=== PATIENT | female | born 1945 | race Caucasian/White ===

== ENCOUNTER 2023-12-02 10:07 | Emergency (ER) | payer OTHER ==
--- NOTE | 2023-12-02 10:39 | ER ---
Nurse's Notes [facility] Name: Sailaja Downey Age: 78 yrs Sex: Female : 1945 Arrival Date: 12/02/2023 Time: 10:07 Bed 5 Private MD: Diagnosis: Encounter for staple removal Presentation: 12/01 10:25 Chief complaint: Patient states: SEEN FOR FALL ON 11/14, 1/2 LYLA REMOVED 1 WK AGO bp AND DIRECTED TO RETURN TODAY FOR REMAINDER. Coronavirus screen: At this time, the client does not indicate any symptoms associated with coronavirus-19. Ebola Screen: No symptoms or risks identified at this time. Initial Sepsis Screen: Does the patient meet any 2 criteria? No. Patient's initial sepsis screen is negative. Does the patient have a suspected source of infection? No. Patient's initial sepsis screen is negative. Risk Assessment: Do you want to hurt yourself or someone else? Patient reports no desire to harm self or others. Onset of symptoms is unknown. 10:25 Method Of Arrival: Wheelchair bp 10:25 Acuity: DANNIELLE 4 bp Historical: - PMHx: 10:30 Anxiety; COPD; Hypertensive disorder; aa5 - Family history:: not pertinent. - Hospitalizations: : No recent hospitalization is reported. Screenin:30 [facility] ED Fall Risk Assessment (Adult) History of falling in the last 3 months, aa5 including since admission Yes- single mechanical fall (1 pt) Confusion or Disorientation No (0 pts) Intoxicated or Sedated No (0 pts) Impaired Gait Yes (1 pt) Mobility Assist Device Used Yes (1 pt) Altered Elimination No (0 pt) Score/Fall Risk Level 3 or more points = High Risk Oriented to surroundings, Maintained a safe environment, Educated pt \T\ family on fall prevention, incl call for assistance when getting out of bed. Abuse screen: Denies threats or abuse. Nutritional screening: No deficits noted. Tuberculosis screening: No symptoms or risk factors identified. Assessment: 10:30 General: Appears comfortable, Behavior is calm, cooperative. Pain: Complains of pain in aa5 left knee. Neuro: Level of Consciousness is awake, alert, obeys commands, Oriented to person, place, time, situation. Cardiovascular: Patient's skin is warm and dry. Respiratory: Airway is patent Respiratory effort is even, unlabored, Respiratory pattern is regular, symmetrical. GI: No signs and/or symptoms were reported involving the gastrointestinal system. : No signs and/or symptoms were reported regarding the genitourinary system. EENT: No signs and/or symptoms were reported regarding the EENT system. Derm: Skin is pink, warm \T\ dry. Healing laceration noted to left knee with scab noted, mild redness noted to surrounding skin, no drainage noted. Musculoskeletal: Reports pain in left knee. 10:35 Reassessment: Lyla removed by MD, placed Steri strips to left knee per MD VO.. aa5 10:53 Reassessment: Patient is alert, oriented x 3, equal unlabored respirations, skin aa5 warm/dry/pink. Vital Signs: 10:25 BP 109 / 61; Pulse 95; Resp 20; Temp 98.1; Pulse Ox 97% ; bp ED Course: 10:12 Patient arrived in ED. mg5 10:22 Link Henriquez MD is Attending Physician. rn 10:26 Triage completed. bp 10:30 Patient has correct armband on for positive identification. Adult w/ patient. aa5 10:35 Lindsey Velez, RN is Primary Nurse. aa5 10:53 No provider procedures requiring assistance completed. Patient did not have IV access aa5 during this emergency room visit. Administered Medications: No medications were administered Medication: 10:35 VIS not applicable for this client. aa5 Outcome: 10:39 Discharge ordered by MD. rn 10:53 Discharged to home via wheelchair, with family, aa5 10:53 Condition: stable 10:53 Discharge instructions given to patient, Instructed on discharge instructions, follow up and referral plans. Demonstrated understanding of instructions, follow-up care, 10:54 Patient left the ED. bp Signatures: Link Henriquez MD MD rn Calderon, Audri RN RN aa5 Oscar Lagunas RN RN bp Sandra Pike mg5 Corrections: (The following items were deleted from the chart) 11:20 11:19 Abuse screen: Denies threats or abuse. aa5 aa5 11:20 11:19 Nutritional screening: No deficits noted. aa5 aa5 11:20 11:19 Tuberculosis screening: No symptoms or risk factors identified. aa5 aa5 11:20 11:19 [facility] ED Fall Risk Assessment (Adult) History of falling in the last 3 months, aa5 including since admission aa5 11:22 10:30 [facility] ED Fall Risk Assessment (Adult) History of falling in the last 3 months, aa5 including since admission aa5
--- NOTE | 2023-12-02 10:39 | EDPHYS ---
Physician Documentation [facility] Name: Sailaja Downey Age: 78 yrs Sex: Female : 1945 Arrival Date: 12/02/2023 Time: 10:07 Bed 5 Private MD: ED Physician Link Henriquez HPI: 12/01 10:36 This 78 yrs old Female presents to ER via Wheelchair with complaints of Staple Removal. rn 10:36 The patient has lyla on the left leg. Previous treatment: The patient was initially rn treated 17 day(s) ago. Sutures/lyla progress: The patient has no c/o's. The wound is well-healing with no redness, swelling, discharge, or dehiscence reported. The patient has not experienced similar symptoms in the past. Patient returns 17 days after laceration repair for staple removal. Reports at the time was given 12 lyla, has already had 6 removed but told to wait for the other 6 as it was not completely healed. No other complaints. Wound healing well, no signs of redness or infection. Was placed on antibiotics previously.. Historical: - PMHx: 10:30 Anxiety; COPD; Hypertensive disorder; aa5 - Family history:: not pertinent. - Hospitalizations: : No recent hospitalization is reported. ROS: 10:36 Constitutional: Negative for fever, chills, and weight loss, Skin: Well-healing wound rn to the left knee Exam: 10:36 Constitutional: This is a well developed, well nourished patient who is awake, alert, rn and in no acute distress. MS/ Extremity: Well-healed wound left knee, mild surrounding erythema but no warmth or drainage. [address] Vital Signs: 10:25 BP 109 / 61; Pulse 95; Resp 20; Temp 98.1; Pulse Ox 97% ; bp Procedures: 10:36 Suture/Staple removal: Removed 6 lyla, from Left knee, site appears well healed, rn dressed with Steri-Strips and Darwin wrap. Patient tolerated well. MDM: 10:22 Patient medically screened. rn 10:36 Data reviewed: vital signs, nurses notes, and as a result, I will discharge patient. rn Counseling: I had a detailed discussion with the patient and/or guardian regarding the historical points, exam findings, and any diagnostic results supporting the discharge/admit diagnosis, the need for outpatient follow up, to return to the emergency department if symptoms worsen or persist or if there are any questions or concerns that arise at home. Special discussion: I discussed with the patient/guardian in detail that at this point there is no indication for admission to the hospital. It is understood, however, that if the symptoms persist or worsen the patient needs to return immediately for re-evaluation. Administered Medications: No medications were administered Disposition Summary: 12/02/23 10:39 Discharge Ordered Notes: Location: Home rn Problem: new rn Symptoms: have improved rn Condition: Stable rn Diagnosis - Encounter for staple removal rn Followup: rn - With: Private Physician - When: As needed - Reason: Recheck today's complaints, Re-evaluation by your physician Discharge Instructions: - Discharge Summary Sheet rn - Sutures, Lyla, or Adhesive Wound Closure rn Forms: - Medication Reconciliation Form rn - Antibiotic internal combustion engine assembler - Prescription Opioid Use rn - Patient Portal Instructions rn - Leadership Thank You Letter rn Signatures: Link Henriquez MD MD rn Calderon, Audri, RN RN aa5
[2023-12-02 10:59] VITALS: BP 109/61; TEMP 98.1; O2SAT 97
== END 2023-12-02 10:54 | disposition home or self-care (01) ==
LOC: ER 10:07
DX: Z48.02 Encounter for removal of sutures (principal)
CPT/HCPCS: 99281; 99282